=== PATIENT | male | born 1975 | race Native Hawaiian/Other Pacific Islander ===

== ENCOUNTER 2016-08-07 22:11 | Emergency (ER) | payer OTHER ==
[2016-08-07 22:34] VITALS: BP 128/68; PULSE 52; RESP 18; TEMP 98.2; O2SAT 98
[2016-08-07] MEDS ORDERED: TDAP Vaccine 0.5 mL Syr IM ONE (22:48)
[2016-08-07] MEDS ORDERED: Oxycodone/Acetaminophen 5/325 mg Tab PO STA (22:48)
--- NOTE | 2016-08-07 23:00 | ED PDOC ---
Arrival/HPI - General Chief Complaint: Finger,Hand,&Wrist Time Seen by Provider: 08/07/16 22:39 - History of Present Illness Narrative History of Present Illness (Text): 08/07/16 22:54 41 y/o Mandarin-speaking M w/ unknown PMHx presents to the ED w/ avulsion injury to R 4th digit. Family/Friends at bedside provided translation. Pt was working on a roof when he attempted to lift something w/ a spinning motor. Pt finger became caught in the motor and the tip was cut off. According to friends @bedside, the motor had been turned off but was still spinning when the injury occurred. Pt still has feeling in the to the tip of the finger. (Valerie Baker) Past Medical History - Provider Review Nursing Documentation Reviewed: Yes - Psychiatric Hx Substance Use: No Family/Social History - Physician Review Nursing Documentation Reviewed: Yes Family/Social History: No Known Family HX Smoking Status: n Hx Alcohol Use: No Hx Substance Use: No Allergies/Home Meds Allergies/Adverse Reactions: Allergies No Known Allergies Allergy (Verified 08/07/16 22:46) Review of Systems - Physician Review All systems were reviewed & negative as marked: Yes - Review of Systems Constitutional: absent: Fevers Cardiovascular: absent: Chest Pain Physical Exam Vital Signs Reviewed: Yes Temperature: Afebrile Blood Pressure: Normal Pulse: Regular Respiratory Rate: Normal Appearance: Positive for: Well-Appearing, Comfortable Pain Distress: None Mental Status: Positive for: Alert and Oriented X 3 - Systems Exam Head: Present: Atraumatic, Normocephalic Pupils: Present: PERRL Extroacular Muscles: Present: EOMI Conjunctiva: Present: Normal Mouth: Present: Moist Mucous Membranes Neck: Present: Normal Range of Motion Respiratory/Chest: No: Respiratory Distress, Accessory Muscle Use Cardiovascular: Present: Regular Rate and Rhythm Upper Extremity: Present: Norm 2-Pt Discrimination, Other (R 4th digit avulsion ) Neurological: Present: GCS=15, Speech Normal Skin: Present: Warm, Dry, Normal Color Psychiatric: Present: Alert, Oriented x 3, Normal Affect, Normal Mood Vital Signs Temp Pulse Resp BP Pulse Ox 08/07/16 22:27 98.2 F 52 L 18 128/68 98 Medical Decision Making - RAD Interpretation Deck Officer: ED Physician (no fracture) ED Course and Treatment: Patient seen and examined with resident. Came up with treatment and disposition plan with resident. (Wilbur Hayward) 08/07/16 23:01 41 y/o M w/ R 4th digit avulsion injury - XRay - wound care - TDaP vaccine - Keflex 500 mg BID x7day - Percocet 5/325mg 1-2tabs PO Q4-6hrs - Hand surgery referral 08/08/16 23:45 Xray negative for fracture. instructed pt to f/u w/ hand surgeon as soon as possible for repair of finger pt discharged home w/ script for Keflex 500mg BID x7day and percocet for pain Pt to see PMD w/in 1week of discharge for follow up. Pt understands and agrees w/ plan. (Valerie Baker) - RAD Interpretation Radiology Orders: 08/07/16 22:47 HAND RIGHT 4TH DIGIT (FINGER) [RAD] Stat - Medication Orders Current Medication Orders: Discontinued Medications Cephalexin Monohydrate (Keflex) 500 mg PO STAT STA PRN Reason: Protocol Stop: 08/07/16 22:54 Last Admin: 08/07/16 23:40 Dose: 500 mg Gelatin (Gelfoam Size 12-7) Confirm Administered Dose 1 spg .ROUTE .STK-MED ONE Stop: 08/07/16 23:40 Last Admin: 08/07/16 23:41 Dose: 1 spg Oxycodone/Acetaminophen (Percocet 5/325 Mg Tab) 1 tab PO STAT STA Stop: 08/07/16 22:49 Last Admin: 08/07/16 23:39 Dose: 1 tab Tetanus/Reduced Diphtheria/Acell Pertussis (Boostrix Vaccine Inj) 0.5 ml IM .ONCE ONE Stop: 08/07/16 22:49 Last Admin: 08/07/16 23:37 Dose: 0.5 ml Procedure: Wound Repair - Time Performed Time Performed: 22:45 - Time Out Time Out: Side verified, Site verified, Patient ID confirmed, Sterile procedures obs. - Procedure Procedure: Wound Repair: surgifoam and gauze applied. wrapped w/ krylex - Consent Obtained Consent obtained: Verbal - Performed by Performed by: Mid-level Provider - Indications Indication(s):: Avulsion - Location Finger:: Right, Ring Shape:: Wedge Dimensions Length cm: 2 Dimensions width cm: 1 Depth:: Bone - Debris Debris:: None - Irrigated Irrigated with ml of normal saline: sterile water/hydrogen peroxide 60cc - Complications Complications: none - Patient tolerated procedure Patient Tolerated Procedure:: Well Disposition/Present on Arrival - Present on Arrival Any Indicators Present on Arrival: No History of DVT/PE: No History of Uncontrolled Diabetes: No Urinary Catheter: No History of Decub. Ulcer: No History Surgical Site Infection Following: None - Disposition Have Diagnosis and Disposition been Completed?: Yes Disposition Time: 23:54 Patient Plan: Discharge - Disposition Diagnosis: Ring avulsion injury of finger of right hand Disposition: HOME/ ROUTINE Condition: STABLE Discharge Instructions (ExitCare): Acute Wound Care (ED), Skin Avulsion (ED) Additional Instructions: Follow up with primary medical doctor Please make an appointment with the Hand surgeon as soon as possible Take Keflex 500mg 1 tablet twice a day for 7 days Take pain medication as prescribed Supplement with Tylenol and/or Motrin as needed for pain Return to the ED if any new or worsening symptoms develop. Prescriptions: Cephalexin [Keflex] 500 mg PO BID #14 capsule oxyCODONE/Acetaminophen [Percocet 5/325 mg Tab] 1 ea PO Q4 PRN #20 tab PRN Reason: Pain, Moderate (4-7) Referrals: Seven Winslow MD [Non-Staff] - Follow up with primary Allie Otero MD [Non-Staff] - Follow up with primary [facility] [Outside] - Follow up with primary
[2016-08-07] MEDS ORDERED: Absorbable Gelatin Sponge Size 12-7 ONE (23:39)
--- NOTE | 2016-08-08 09:36 | RAD ---
PROCEDURE: Right Hand Radiographs. HISTORY: avulsion injury COMPARISON: None. FINDINGS: BONES: Normal. No fracture. JOINTS: Normal. No osteoarthritic changes. SOFT TISSUES: There is a soft tissue avulsion of the tip of the 4th digit. OTHER FINDINGS: None. IMPRESSION: There is a soft tissue avulsion of the tip of the 4th digit. No fracture
== END 2016-08-08 00:04 | disposition home or self-care (01) ==
LOC: ED 22:11
DX: S61.204A Unspecified open wound of right ring finger without damage to nail, initial encounter (principal); Z23 Encounter for immunization